=== PATIENT | female | born 1950 | race Caucasian/White ===

== ENCOUNTER 2019-02-06 20:12 | Inpatient (IN) | payer MEDICARE ==
[~2019-02-06] VITALS: Ht 160 cm; Wt 78.4 kg
[2019-02-06] MEDS ORDERED: CELEXA10 MG PO (20:15)
[2019-02-06] MEDS ORDERED: HCTZ12.5TAB PO (20:16)
[2019-02-06] MEDS ORDERED: PRINIVIL2.5 MG PO (20:16)
[2019-02-06 21:20] LABS: ALANINE AMINOTRANSFERASE < 6 U/L (9-52); ALBUMIN 4.1 gm/dL (3.5-5.0); ALKALINE PHOSPHATASE 147 U/L (50-136); ANION GAP 14 mmol/L (7-16); AST,SGOT 33 U/L (15-37); BILIRUBIN,TOTAL 0.5 mg/dL (0.0-1.0); BLOOD UREA NITROGEN 23 mg/dL (7-17); CALCIUM 9.4 mg/dL (8.4-10.2); CARBON DIOXIDE 25 mmol/L (22-30); CHLORIDE 101 mmol/L (98-107); CREATININE, serum 1.24 (0.52-1.25); GLUCOSE 172 mg/dL (74-106); POTASSIUM 3.4 mmol/L (3.4-5.0); SODIUM 139 mmol/L (137-145); TOTAL PROTEIN 8.4 gm/dL (6.4-8.2)
[2019-02-06 21:21] LABS: ALCOHOL(ethanol),MEDICAL < 10 mg/dL
[2019-02-06 21:28] LABS: BASO # 0.1 (0.0-0.2); BASO % 0.3 % (0.0-2.0); EOS % 0.3 % (0-4.0); GRAN # 11.6 (1.4-6.5); HEMATOCRIT 44.3 % (37.0-47.0); HEMOGLOBIN 14.7 g/dl (12.5-16.0); LYMPH # 2.4 (1.2-3.4); LYMPH % 16.1 % (20.0-51.0); MEAN CELL VOLUME 86 fl (80.0-100.0); MEAN CORPUSCULAR HEMOGLOBIN 29 pg (27.0-31.0); MEAN CORPUSCULAR HGB CONC 33 g/dl (33.0-37.0); MEAN PLATELET VOLUME 10.3 fl (7.4-10.4); MONO # 0.9 (0.1-0.6); MONO % 5.6 % (1.7-9.3); PLATELET COUNT 387 K/mm3 (130-400); RED BLOOD COUNT 5.13 M/mm3 (4.10-5.30); REDCELL DISTRIBUTION WIDTH-CV 12.9 % (11.5-14.5)
[2019-02-06 21:31] LABS: TROPONIN-I 0.027 ng/mL (0.000-0.035)
[2019-02-06 22:06] LABS: COLLECTION METHOD CLEAN CATCH
[2019-02-06 22:22] LABS: MUCOUS Present /lpf; PH 5 (5-8); SQUAMOUS EPITHELIAL 0-2 /hpf; URINE APPEARANCE Hazy; URINE BACTERIA None Seen /hpf; URINE BILIRUBIN Negative (NEGATIVE); URINE BLOOD Negative (NEGATIVE); URINE COLOR Yellow; URINE GLUCOSE 2+ (NEGATIVE); URINE KETONE Trace (NEGATIVE); URINE LEUKOCYTE ESTERASE 2+ (NEGATIVE); URINE NITRATE Negative (NEGATIVE); URINE PROTEIN(semi-quant) 1+ (NEGATIVE); URINE RBC None Seen /hpf; URINE UROBILINOGEN Negative (NEGATIVE)
[2019-02-06 22:28] LABS: TRICYCLIC ANTIDEPRESS URINE NEGATIVE
[2019-02-06] MEDS ORDERED: BENADRYL50 MG PO (23:31)
[2019-02-06] MEDS ORDERED: VITAMIN E1000 U/CAP PO (23:32)
[2019-02-06] MEDS ORDERED: NATURE'S BLE1000 MCG (23:34)
[2019-02-06] MEDS ORDERED: VITAMIN D3400 I1 (23:35)
[2019-02-06 23:36] VITALS: BP 136/51; PULSE 74; TEMP 98.6
--- NOTE | 2019-02-07 01:30 | NUR ---
Patient arrived to the floor at 2325. 5 page completed. Fluids running to right forearm. Finished bag and Lynnette discontinued. INT flushes well. No confusion noted. Patient denies any pain. Med rec completed. Patient states she no longer has any blurred vision. No tremors noted, but patient does move her legs quite frequently. Continues on telemetry. Will continue to monitor patient throughout the night.
[2019-02-07 02:41] VITALS: BP 130/52; PULSE 78; TEMP 98.7
--- NOTE | 2019-02-07 06:58 | NUR ---
Report given to KIKE Francis.
[2019-02-07 07:34] VITALS: BP 132/48; PULSE 76; TEMP 98.4
[2019-02-07 07:43] LABS: BASO # 0.1 (0.0-0.2); BASO % 0.5 % (0.0-2.0); EOS # 0.2 (0.0-0.7); GRAN % 59.3 % (42.2-75.2); HEMOGLOBIN 13.3 g/dl (12.5-16.0); LYMPH # 3.6 (1.2-3.4); LYMPH % 30.4 % (20.0-51.0); MEAN CELL VOLUME 86 fl (80.0-100.0); MEAN CORPUSCULAR HEMOGLOBIN 29 pg (27.0-31.0); MEAN CORPUSCULAR HGB CONC 33 g/dl (33.0-37.0); MEAN PLATELET VOLUME 10.5 fl (7.4-10.4); MONO # 0.9 (0.1-0.6); MONO % 7.5 % (1.7-9.3); PLATELET COUNT 336 K/mm3 (130-400); RED BLOOD COUNT 4.63 M/mm3 (4.10-5.30); REDCELL DISTRIBUTION WIDTH-CV 12.9 % (11.5-14.5)
[2019-02-07 07:51] LABS: CHOLESTEROL RISK RATIO 8.6; CREATININE, serum 0.87 (0.52-1.25); POTASSIUM 3.2 mmol/L (3.4-5.0)
--- NOTE | 2019-02-07 09:00 | NUR ---
Assessment complete. Patient A&Ox3, reporting that she has a headache, did not request any pain medication.VS stable. INT CDI. Tremors in hands noted. No further needs expressed from patient. Call light within reach
[2019-02-07 11:29] VITALS: BP 123/58; PULSE 78; TEMP 98.6
--- NOTE | 2019-02-07 12:46 | NUR ---
MANAGER DISASTER [employer]OVERY assisted patient to the bathroom where the patient was trying to take off gown and was confused. MANAGER DISASTER RECOVERY assisted patient back to bed with bed alarm on. Nurse assessed patient and patient was A&Ox3. Bed alarm on and call light within reach
--- NOTE | 2019-02-07 18:12 | NUR ---
Patient resting in bed. A&O, denies pain and discomfort. VS stable. IV CDI. Patient informed of procdure tomorrow and being NPO after midnight. No further needs expressed from patient. Bed alarm on. Patient instructed to call nursing staff for assistance when needed. Call light within reach
--- NOTE | 2019-02-07 20:00 | NUR ---
Patient report received from KIKE Francis at bedside during shift change. Upon assessment at this time patient is resting comfortably in bed watching tv. Patient denies pain or n/v. Is alert and oriented. Bed alarm activated in case patient experiences AMS throughout the night. Patient to be NPO after MN for a LILIYA in the morning around 10. Per report the day shift nurse tomorrow will need to take patient down at 10 am. No other needs reported/observed.
[2019-02-07 20:29] VITALS: BP 116/56; PULSE 76; TEMP 98.5
[2019-02-08] VITALS (11 sets, daily range): BP systolic 126–153; BP diastolic 41–70; PULSE 65–79; TEMP 97.9–101.1
--- NOTE | 2019-02-08 07:00 | NUR ---
Patient report given to KIKE Mehta. Patient resting in bed, lab currently drawing labs. No needs observed.
[2019-02-08 07:12] LABS: BASO # 0.1 (0.0-0.2); BASO % 0.5 % (0.0-2.0); EOS # 0.2 (0.0-0.7); EOS % 2.2 % (0-4.0); GRAN # 5.8 (1.4-6.5); HEMOGLOBIN 13.8 g/dl (12.5-16.0); LYMPH # 3.2 (1.2-3.4); LYMPH % 31.8 % (20.0-51.0); MEAN CELL VOLUME 86 fl (80.0-100.0); MEAN CORPUSCULAR HEMOGLOBIN 29 pg (27.0-31.0); MEAN CORPUSCULAR HGB CONC 34 g/dl (33.0-37.0); MEAN PLATELET VOLUME 10.4 fl (7.4-10.4); MONO # 0.7 (0.1-0.6); MONO % 7.2 % (1.7-9.3); PLATELET COUNT 333 K/mm3 (130-400); RED BLOOD COUNT 4.77 M/mm3 (4.10-5.30); REDCELL DISTRIBUTION WIDTH-CV 12.8 % (11.5-14.5)
[2019-02-08 07:16] LABS: INR 1.2 (0.8-3.0)
[2019-02-08 07:23] LABS: CALCIUM 9.1 mg/dL (8.4-10.2); CREATININE, serum 0.69 (0.52-1.25); MAGNESIUM 1.9 mg/dL (1.6-2.3); POTASSIUM 3.6 mmol/L (3.4-5.0)
--- NOTE | 2019-02-08 07:38 | NUR ---
Patient is resting in bed, lab in for draw. Has personal items and call light within reach.
--- NOTE | 2019-02-08 10:45 | NUR ---
SW met with patient to discuss discharge planning and positive drug test. Patient lives at home with her . Patient's PCP is Dr Gonzales and she obtains prescriptions from [facility]. Patient does not use any DME or home health. Patient does have a DPOA and SW requested a copy. 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 SW addressed this with patient. She reported that she does not know how she tested positive for anything but marijuana. SW inquired if she ever smokes marijuana while watching the children and she said "no." Due to the positive drug test and the fact that she watches her grandchildren almost everyday, SW submitted a CPS report. Intake ID #[id number]. No additional needs.
--- NOTE | 2019-02-08 18:30 | NUR ---
Patient is resting in bed watching TV. Denies pain, personal items and call light is within reach.
--- NOTE | 2019-02-08 20:28 | NUR ---
PT IN BED WITH HOB ELEVATED, A/O X4. PT HAS HEADACHE RATED AT A 6/10 THAT IS DULL, GAVE TYLENOL FOR PAIN. NO NEEDS AT THIS TIME, CALL LIGHT WITHIN REACH.
--- NOTE | 2019-02-09 01:13 | NUR ---
PT RESTING/SLEEPING IN BED EASILY AWAKENS AND HAS NO C/O PAIN OR DISCOMFORT AT THIS TIME. PT HAS NO NEEDS OR CONCERNS AND CALL LIGHT WITHIN REACH.
--- NOTE | 2019-02-09 03:38 | NUR ---
PT SLEEPING/RESTING WITH NO S/S OF PAIN OR DISCOMFORT, RESP EVEN AND UNLABORED. CARE TAKEN OVER BY PINA STOKES.
--- NOTE | 2019-02-09 03:40 | NUR ---
Patient report received from KIKE Caldera at this time. Patient is resting comfortably. No needs observed.
[2019-02-09 03:47] VITALS: BP 152/49; PULSE 63; TEMP 98.5
[2019-02-09 06:20] LABS: BASO % 0.5 % (0.0-2.0); EOS # 0.2 (0.0-0.7); EOS % 2.6 % (0-4.0); GRAN # 4.9 (1.4-6.5); GRAN % 55.5 % (42.2-75.2); HEMATOCRIT 42.8 % (37.0-47.0); HEMOGLOBIN 13.9 g/dl (12.5-16.0); LYMPH # 2.9 (1.2-3.4); LYMPH % 33.3 % (20.0-51.0); MEAN CELL VOLUME 88 fl (80.0-100.0); MEAN CORPUSCULAR HEMOGLOBIN 29 pg (27.0-31.0); MEAN CORPUSCULAR HGB CONC 33 g/dl (33.0-37.0); MEAN PLATELET VOLUME 10.4 fl (7.4-10.4); MONO # 0.7 (0.1-0.6); MONO % 7.8 % (1.7-9.3); PLATELET COUNT 301 K/mm3 (130-400); RED BLOOD COUNT 4.85 M/mm3 (4.10-5.30); REDCELL DISTRIBUTION WIDTH-CV 12.8 % (11.5-14.5)
[2019-02-09 06:45] LABS: COLLECTION METHOD CLEAN CATCH
[2019-02-09 06:55] LABS: CALCIUM 8.9 mg/dL (8.4-10.2); CREATININE, serum 0.7 (0.52-1.25); POTASSIUM 4.1 mmol/L (3.4-5.0)
[2019-02-09 06:56] LABS: PH 6 (5-8); SQUAMOUS EPITHELIAL 0-2 /hpf; URINE APPEARANCE Clear; URINE BACTERIA None Seen /hpf; URINE BILIRUBIN Negative (NEGATIVE); URINE BLOOD 1+ (NEGATIVE); URINE COLOR Yellow; URINE GLUCOSE Negative (NEGATIVE); URINE KETONE Negative (NEGATIVE); URINE LEUKOCYTE ESTERASE 3+ (NEGATIVE); URINE NITRATE Negative (NEGATIVE); URINE PROTEIN(semi-quant) Negative (NEGATIVE); URINE RBC 0-2 /hpf; URINE UROBILINOGEN Negative (NEGATIVE); URINE WBC 20-50 /hpf
--- NOTE | 2019-02-09 07:01 | NUR ---
Patient report given to KIKE Mehta. Patient is resting comfortably in bed. UA obtained and sent to lab.
[2019-02-09 07:14] VITALS: BP 154/68; PULSE 69; TEMP 98
--- NOTE | 2019-02-09 07:15 | NUR ---
Patient is resting in bed, eyes are closed. Respirations are even non labored. Call light is within reach.
[2019-02-09] MEDS ORDERED: ELIQUIS 5MG PO (09:25)
[2019-02-09] MEDS ORDERED: LIPITOR 40MG TA40 MG PO (09:26)
[2019-02-09] MEDS ORDERED: CEFTIN 250250 MG/TAB PO (09:38)
[2019-02-09] MEDS ORDERED: ZESTRIL 5MG5 MG PO (09:39)
--- NOTE | 2019-02-09 15:45 | NUR ---
Patient discharged home with at 1505. Discharge instructions reviewed, patient verbalized understanding. Personal belongings sent with patient. Assisted out via wheelchair.
== END 2019-02-09 15:05 | disposition home or self-care (01) | DRG 66 ==
LOC: COL.ER 20:12 → MEDICAL 22:27
PROVIDERS: Emergency Medicine; Nurse Practitioner; Physician Assistant; ADMIT Internal Medicine
DX: I63.40 Cerebral infarction due to embolism of unspecified cerebral artery (principal); R47.1 Dysarthria and anarthria; H53.8 Other visual disturbances; R29.700 NIHSS score 0; E11.9 Type 2 diabetes mellitus without complications; E87.6 Hypokalemia; I10 Essential (primary) hypertension; F19.10 Other psychoactive substance abuse, uncomplicated
CPT/HCPCS: OP; 99223-AI; 99232-AI; 99239; A4216; A9585; G0378; J0696; J2704; J7030

== ENCOUNTER → 2022-01-27 | Outpatient (CLI) | payer MEDICARE ==
[~2022-01-27] MED LIST: BENADRYL50 MG PO; CEFTIN 250250 MG/TAB PO; CELEXA10 MG PO; ELIQUIS 5MG PO; HCTZ12.5TAB PO; LIPITOR 40MG TA40 MG PO; NATURE'S BLE1000 MCG; PRINIVIL2.5 MG PO; VITAMIN D3400 I1; VITAMIN E1000 U/CAP PO; ZESTRIL 5MG5 MG PO
== END ==
LOC: MC.RAD 11:15
DX: Z12.31 Encounter for screening mammogram for malignant neoplasm of breast (principal); Z98.890 Other specified postprocedural states; Z85.3 Personal history of malignant neoplasm of breast